=== PATIENT | male | born 1995 | race Caucasian/White ===

== ENCOUNTER 2017-03-16 02:50 | Emergency (ER) | payer SELFPAY ==
[2017-03-16] MEDS ORDERED: NORMAL SALINE 1000 ML 1,000 ML IV ONE (03:03)
--- NOTE | 2017-03-16 03:10 | ER Document Report ---
ED Respiratory Problem - General Chief Complaint: Shortness Of Breath Stated Complaint: SHORTNESS OF BREATH Time Seen by Provider: 03/16/17 02:56 Notes: Patient is a 21-year-old male that comes emergency department for chief complaint of shortness of breath, wheezing, cough, congestion. He comes by EMS , has received 3 albuterol treatments and Solu-Medrol. He states he has been sick with an upper respiratory illness for the past few days but this afternoon he started wheezing and he got worse. He denies fever or chills, he denies any other symptoms. He states he has a history of asthma, denies ever smoking, states he used to have inhalers but has not needed them in a long time. He used to be on Zyrtec as well but has not taken it recently. He takes no daily medications. He denies any other medical history. - Related Data Allergies/Adverse Reactions: shellfish derived Allergy (Verified 03/16/17 03:10) Past Medical History - General Information source: Patient - Social History Smoking Status: Never Smoker Frequency of alcohol use: None Drug Abuse: None Lives with: Family Family History: Reviewed & Not Pertinent Pulmonary Medical History: Reports: Hx Asthma Surgical Hx: Negative - Immunizations Immunizations up to date: Yes Hx Diphtheria, Pertussis, Tetanus Vaccination: Yes Review of Systems - Review of Systems Constitutional: No symptoms reported EENT: See HPI Cardiovascular: No symptoms reported Respiratory: See HPI Gastrointestinal: No symptoms reported Genitourinary: No symptoms reported Male Genitourinary: No symptoms reported Musculoskeletal: No symptoms reported Skin: No symptoms reported Hematologic/Lymphatic: No symptoms reported Neurological/Psychological: No symptoms reported Physical Exam - Vital signs Vitals: Temp Pulse Resp BP Pulse Ox 97.9 F 129 H 20 131/77 H 96 03/16/17 02:53 03/16/17 02:53 03/16/17 02:53 03/16/17 02:53 03/16/17 02:53 Interpretation: Normal - General General appearance: Appears well, Alert - HEENT Head: Normocephalic, Atraumatic Eyes: Normal Pupils: PERRL - Respiratory Respiratory status: No respiratory distress. No: Respiratory distress, Labored , Tachypnea Chest status: Nontender Breath sounds: Wheezing - Expiratory wheezes throughout. No: Nonproductive cough, Productive cough Chest palpation: Normal - Cardiovascular Rhythm: Regular, Tachycardia Heart sounds: Normal auscultation, S1 appreciated, S2 appreciated Murmur: No - Abdominal Inspection: Normal Distension: No distension Bowel sounds: Normal Tenderness: Nontender. No: Tender, Guarding - Back Back: Normal, Nontender. No: Tender - Extremities General upper extremity: Normal inspection, Nontender, Normal strength, Normal temperature General lower extremity: Normal inspection, Nontender, Normal strength, Normal temperature. No: Edema - Neurological Neuro grossly intact: Yes Cognition: Normal Orientation: AAOx4 [place] Coma Scale Eye Opening: Spontaneous [place] Coma Scale Verbal: Oriented [place] Coma Scale Motor: Obeys Commands [place] Coma Scale Total: 15 Speech: Normal Motor strength normal: LUE, RUE, LLE, RLE Sensory: Normal - Psychological Associated symptoms: Normal affect, Normal mood - Skin Skin Temperature: Warm Skin Moisture: Dry Skin Color: Normal Course - Re-evaluation Re-evalutation: Patient is in no distress, even breaths, he does have expiratory wheezes but he states he feels much better after initial treatments. No hypoxia. He is tachycardic, probably from the beta agonists. No fever. Chest x-ray unremarkable. After additional treatments of magnesium and IV fluids symptoms completely resolved. Wheeze was gone. Tachycardia almost resolved. Patient states he feels great. Patient provided with inhaler, prednisone, inhaler refill at home , discussed follow-up, return precautions in detail. Patient and significant other state understanding and agreement. - Vital Signs Vital signs: Temp Pulse Resp BP Pulse Ox 97.9 F 129 H 20 113/62 95 03/16/17 02:53 03/16/17 02:53 03/16/17 03:00 03/16/17 04:01 03/16/17 04:01 Discharge - Discharge Clinical Impression: Wheezing Upper respiratory infection Qualifiers: URI type: unspecified URI Qualified Code(s): J06.9 - Acute upper respiratory infection, unspecified Asthma exacerbation Qualifiers: Asthma severity: unspecified severity Asthma persistence: intermittent Qualified Code(s): J45.21 - Mild intermittent asthma with (acute) exacerbation Condition: Stable Disposition: HOME, SELF-CARE Additional Instructions: Your examination is consistent with initially a viral upper respiratory infection and also an asthma exacerbation. No pneumonia seen on chest x-ray. Take the prednisone as prescribed, use the albuterol inhaler as prescribed if needed, resume your daily Zyrtec. Follow-up with primary care. Return for any concerning or worsening symptoms including spiking fever, difficulty breathing, or any other concerning symptoms. Prescriptions: Albuterol Sulfate [Proair HFA Inhalation Aerosol 8.5 gm MDI] 2 puff IH Q4H PRN # 1 mdi PRN Reason: Prednisone 60 mg PO DAILY #15 tablet
[2017-03-16] MEDS: MAGNESIUM SULFATE/D5W 1 GM/100 ML RTUPB IV PRN ×2 (03:23→04:06)
--- NOTE | 2017-03-16 03:47 | RADIOLOGY REPORT (SQ) ---
EXAM DESCRIPTION: CHEST SINGLE VIEW CLINICAL HISTORY: 21 years, Male, shortness of breath COMPARISON: None. FINDINGS: Normal lung volume, clear parenchyma, normal cardiac silhouette, and intact bony thorax. IMPRESSION: No acute cardiopulmonary findings. 2011 [employer]- All Rights Reserved
[2017-03-16] MEDS ORDERED: ALBUTEROL SULFATE HFA (90 MCG/PUFF) 8 GM MDI (1 MDI/ER DISP) IH ONE (04:04)
[2017-03-16 05:05] VITALS: BP 113/62
== END 2017-03-16 05:05 | disposition home or self-care (01) ==
LOC: ER 02:50
DX: J06.9 Acute upper respiratory infection, unspecified (principal); J45.21 Mild intermittent asthma with (acute) exacerbation; R06.02 Shortness of breath; R06.2 Wheezing; R05 Cough; R09.81 Nasal congestion
CPT/HCPCS: 99285; 96365; 71045; J3475; J7030; J3490